=== PATIENT | male | born 1995 | race Hispanic/Latino ===

== ENCOUNTER 2021-06-20 19:49 | Emergency (ER) | payer OTHER ==
[~2021-06-20] VITALS: Ht 170.2 cm; Wt 81.2 kg
[2021-06-20 19:58] VITALS: BP 124/86
== END 2021-06-20 20:20 | disposition home or self-care (01) ==
LOC: EDH 19:49
DX: N48.89 Other specified disorders of penis (principal); T50.995A Adverse effect of other drugs, medicaments and biological substances, initial encounter; Y92.89 Other specified places as the place of occurrence of the external cause
CPT/HCPCS: 99281

== ENCOUNTER 2023-12-26 20:05 | Emergency (ER) | payer BC ==
[~2023-12-26] VITALS: Ht 170.2 cm; Wt 83.9 kg
[2023-12-26 20:27] LABS: SARS-CoV-2, RNA, NAAT NEGATIVE SARS CoV-2 (NEGATIVE)
[2023-12-26 20:30] LABS: INFLUENZA TYPE A Negative For Type A (NEGATIVE); INFLUENZA TYPE B Negative For Type B (NEGATIVE)
[2023-12-26] MEDS ORDERED: GUAI-484 PO (21:01)
[2023-12-26] MEDS ORDERED: AZIT250T9 PO (21:01)
[2023-12-26] MEDS ORDERED: METH4TAB3 PO (21:01)
[2023-12-26 21:14] VITALS: BP 139/82; PULSE 86; RESP 16; TEMP 99; O2SAT 96
== END 2023-12-26 21:15 | disposition home or self-care (01) ==
LOC: EDH 20:05
DX: J18.9 Pneumonia, unspecified organism (principal); Z20.822 Contact with and (suspected) exposure to COVID-19
CPT/HCPCS: 71045; 87635; 87804